=== PATIENT | female | born 1975 | race American Indian/Alaskan Native ===

== ENCOUNTER 2019-09-06 09:12 | Emergency (ER) | payer SELFPAY ==
[2019-09-06] MEDS ORDERED: SODIUM CHLORIDE 0.9% 1000 ML IV SOLN IV ONE (09:52)
--- NOTE | 2019-09-06 09:55 | Event Note ---
ED Screening Note Date of service: 09/06/19 Time: 09:50 ED Screening Note: 44 y/o female comes in for dizziness and blurred vision. This initial assessment/diagnostic orders/clinical plan/treatment(s) is/are subject to change based on patients health status, clinical progression and re-assessment by fellow clinical providers in the ED. Further treatment and workup at subsequent clinical providers discretion. Patient/guardian urged not to elope from the ED as their condition may be serious if not clinically assessed and managed. Initial orders include: ED sepsis protocol. Patient is tachy and has a fever.
[2019-09-06 10:29] LABS: Basophils # (Auto) 0.1 K/mm3 (0.0-0.1); Basophils % (Auto) 1.2 % (0.0-1.8); Eosinophils # (Auto) 0.1 K/mm3 (0.0-0.4); Eosinophils % (Auto) 1.7 % (0.0-4.3); Hematocrit 23.1 % (30.3-42.9); Hemoglobin 7.3 gm/dl (10.1-14.3); Lymphocytes # (Auto) 0.9 K/mm3 (1.2-5.4); Lymphocytes % (Auto) 21.3 % (13.4-35.0); Mean Corpuscular HGB Conc 32 % (30-34); Mean Corpuscular Volume 74 fl (79-97); Monocytes # (Auto) 0.4 K/mm3 (0.0-0.8); Monocytes % (Auto) 9.6 % (0.0-7.3); Red Blood Count 3.11 M/mm3 (3.65-5.03)
[2019-09-06 10:39] LABS: Platelet Count 145 K/mm3 (140-440); Red Cell Distribution Width 20.5 % (13.2-15.2)
[2019-09-06 10:44] LABS: Albumin 3.1 g/dL (3.9-5); Calcium 8.5 mg/dL (8.4-10.2)
[2019-09-06 10:53] LABS: Bacteria,Urine 2+ /HPF (Negative); Bilirubin,Urine NEG (Negative); Blood,Urine NEG (Negative); Color,Urine Yellow (Yellow); Mucus,Urine FEW /HPF; Urobilinogen,Urine < 2.0 mg/dL (<2.0)
[2019-09-06] MEDS ORDERED: SODIUM CHLORIDE 0.9% 250ML 250 ML ONE (11:03)
[2019-09-06] MEDS ORDERED: ACETAMINOPHEN 325 MG TAB PO ONE (11:37)
[2019-09-06] MEDS ORDERED: SODIUM CHLORIDE 0.9% 500 ML 500 ML IV ONE (11:37)
[2019-09-06] MEDS ORDERED: PANTOPRAZOLE 40 MG INJ IV ONE (11:37)
--- NOTE | 2019-09-06 11:38 | Emergency Department Report ---
ED General Adult HPI - General Chief complaint: Dizziness Stated complaint: blurry vision,dizzy Time Seen by Provider: 09/06/19 09:50 Source: patient, RN notes reviewed Mode of arrival: Ambulatory Limitations: No Limitations - History of Present Illness Initial comments: This is a 44-year-old female. The patient is not known to myself previously. 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 She started the pain medication that was prescribed for her, a few weeks ago, but she cannot recall the name of the pain medication. She has no physical pain at this time. She describes her dizziness as a sensation of lightheadedness and blurry vision. There is no complaint of headache, neck pain, chest pain, abdominal pain or shortness of breath. The patient also endorses that she has black stool occasionally, but that she takes iron tablets. She does not take any blood thinning medications. She is not able to describe exacerbating or relieving factors. She denies focal extremity weakness and or numbness. There is no neck pain or neck stiffness. -: Gradual, week(s) Consistency: other Improves with: other Worsens with: other Associated Symptoms: other - Related Data Allergies Allergy/AdvReac Type Severity Reaction Status Date / Time No Known Allergies Allergy Unverified 09/06/19 09:23 ED Review of Systems ROS: Stated complaint: blurry vision,dizzy Other details as noted in HPI Constitutional: see HPI Eyes: as per HPI ENT: as per HPI Respiratory: see HPI Cardiovascular: as per HPI Gastrointestinal: as per HPI Genitourinary: as per HPI Musculoskeletal: as per HPI Skin: as per HPI Neurological: as per HPI Psychiatric: as per HPI Hematological/Lymphatic: as per HPI ED Past Medical Hx - Past Medical History Previous Medical History?: No - Surgical History Past Surgical History?: No - Social History Smoking Status: Never Smoker ED Physical Exam - General Limitations: No Limitations General appearance: alert, in no apparent distress - Head Head exam: Present: atraumatic, normocephalic - Eye Eye exam: Present: normal appearance, PERRL, EOMI, other (Visual acuity is intact to finger counting and color perception at a close distance). Absent: nystagmus - ENT ENT exam: Present: normal exam, normal orophraynx, mucous membranes moist, normal external ear exam - Neck Neck exam: Present: normal inspection, full ROM. Absent: tenderness, meningismus - Respiratory Respiratory exam: Present: normal lung sounds bilaterally. Absent: respiratory distress - Cardiovascular Cardiovascular Exam: Present: normal rhythm, tachycardia, normal heart sounds. Absent: systolic murmur, diastolic murmur, rubs, gallop - GI/Abdominal GI/Abdominal exam: Present: soft, normal bowel sounds. Absent: distended, tenderness, guarding, rebound, rigid, pulsatile mass - Rectal Rectal exam: Present: normal inspection, normal rectal tone, heme (+) stool, other (Chaperoned by nurse Soni Alamo). Absent: black stool, bloody stool, fecal impaction, hemorrhoids - Extremities Exam Extremities exam: Present: normal inspection, full ROM, other (2+ pulses noted in the bilateral upper and lower extremities. There is no palpable cord. negative Homans sign. Muscular compartments are soft. The pelvis is stable.). Absent: pedal edema, calf tenderness - Back Exam Back exam: Present: normal inspection, full ROM. Absent: tenderness, CVA tenderness (R), CVA tenderness (L), paraspinal tenderness, vertebral tenderness - Neurological Exam Neurological exam: Present: alert, normal gait, other (There is no facial droop. The tongue is midline. Extraocular movements are intact bilaterally. There is 5 out of 5 strength in bilateral upper and lower extremities. Sensation is intact to light touch bilateral upper and lower extremities. There is no past- pointing. There is no pronator drift. There is normal [id number]. There is a normal gait.). Absent: motor sensory deficit - Psychiatric Psychiatric exam: Present: anxious - Skin Skin exam: Present: warm, dry, intact, normal color. Absent: rash ED Course Vital Signs 09/06/19 09/06/19 09/06/19 09:29 09:50 10:48 Temperature 100.4 F H 100.4 F H Pulse Rate 128 H 126 H 100 H Respiratory 18 18 21 Rate Blood Pressure 111/73 111/73 Blood Pressure 112/77 [Left] O2 Sat by Pulse 100 100 98 Oximetry 09/06/19 09/06/19 09/06/19 12:00 13:42 16:47 Temperature Pulse Rate 96 H 96 H 77 Respiratory 21 20 16 Rate Blood Pressure Blood Pressure 100/79 112/81 107/72 [Left] O2 Sat by Pulse 98 97 97 Oximetry 09/06/19 09/07/19 09/07/19 18:03 00:20 02:00 Temperature 98.4 F 98.2 F Pulse Rate 84 85 87 Respiratory 16 18 20 Rate Blood Pressure Blood Pressure 106/76 113/76 105/75 [Left] O2 Sat by Pulse 98 97 100 Oximetry 09/07/19 09/07/19 09/07/19 03:00 04:00 05:00 Temperature Pulse Rate 91 H 95 H 94 H Respiratory 18 23 20 Rate Blood Pressure Blood Pressure 106/74 113/81 116/80 [Left] O2 Sat by Pulse 99 100 100 Oximetry 09/07/19 09/07/19 09/07/19 06:30 06:45 07:00 Temperature Pulse Rate 114 H 107 H 111 H Respiratory 22 21 16 Rate Blood Pressure 127/89 127/89 125/87 Blood Pressure [Left] O2 Sat by Pulse 100 100 98 Oximetry 09/07/19 09/07/19 08:37 09:26 Temperature 100.4 F H Pulse Rate 110 H 109 H Respiratory 20 18 Rate Blood Pressure Blood Pressure 126/75 114/81 [Left] O2 Sat by Pulse 100 100 Oximetry - Reevaluation(s) Reevaluation #1: 09/06/19 14:08 Differential diagnosis, including but not limited to: Viral syndrome, influenza, pneumonia, urinary tract infection, symptomatic anemia, GERD, gastritis, upper GI bleed Assessment and plan: 44-year-old female with a nonfocal neurologic examination, alert and oriented, clinically sober, GCS of 15, with a primary complaint of weakness, dizziness, blurry vision, found to have a low-grade fever, tachycardia, microcytic anemia, leukopenia, with CT scan of the brain showing nonspecific vasogenic edema. This hospital does not have neurology critical care, or neurosurgery available for consultation. Reached out to [facility], and discussed the case with their neurology critical care physician, Dr. Burke Adkins, who advised that the patient does not meet criteria for ICU stay, and I agree with him. However, the patient does require further work-up and evaluation Reevaluation #2: 09/06/19 14:19 d/w Dr Avalos neurology physician at [facility], who accepts the patient to their service. This case was also discussed with her hospital physician, Dr. Susan Aaron, who also advised transfer and advised that he would not be able to admit the patient to the medical service secondary to lack of having neurology surgery, if the patient had an unexpected decompensation., ED Medical Decision Making - Lab Data Result diagrams: 09/06/19 10:06 09/06/19 10:06 Vital Signs 09/06/19 09/06/19 09:50 10:48 Temperature 100.4 F H Pulse Rate 126 H 100 H Respiratory 18 21 Rate Blood Pressure 111/73 Blood Pressure 112/77 [Left] O2 Sat by Pulse 100 98 Oximetry Lab Results 09/06/19 09/06/19 09/06/19 Range/Units 10:06 10:06 10:06 WBC 4.3 L (4.5-11.0) K/mm3 RBC 3.11 L (3.65-5.03) M/mm3 Hgb 7.3 L (10.1-14.3) gm/dl Hct 23.1 L (30.3-42.9) % MCV 74 L (79-97) fl MCH 23 L (28-32) pg MCHC 32 (30-34) % RDW 20.5 H (13.2-15.2) % Plt Count 145 (140-440) K/mm3 Lymph % (Auto) 21.3 (13.4-35.0) % [place] % (Auto) 9.6 H (0.0-7.3) % Eos % (Auto) 1.7 (0.0-4.3) % Baso % (Auto) 1.2 (0.0-1.8) % Lymph # 0.9 L (1.2-5.4) K/mm3 [place] # 0.4 (0.0-0.8) K/mm3 Eos # 0.1 (0.0-0.4) K/mm3 Baso # 0.1 (0.0-0.1) K/mm3 Seg Neutrophils % 66.2 (40.0-70.0) % Seg Neutrophils # 2.8 (1.8-7.7) K/mm3 Sodium 131 L (137-145) mmol/L Potassium 4.2 (3.6-5.0) mmol/L Chloride 99.4 (98-107) mmol/L Carbon Dioxide 20 L (22-30) mmol/L Anion Gap 16 mmol/L BUN 14 (7-17) mg/dL Creatinine 1.5 H (0.7-1.2) mg/dL Estimated GFR 38 ml/min BUN/Creatinine Ratio 9 % Glucose 109 H (65-100) mg/dL Lactic Acid 0.70 (0.7-2.0) mmol/L Calcium 8.5 (8.4-10.2) mg/dL Magnesium (1.7-2.3) mg/dL Total Bilirubin 0.20 (0.1-1.2) mg/dL AST 107 H (5-40) units/L ALT 47 (7-56) units/L Alkaline Phosphatase 47 (35-129) units/L Total Creatine Kinase (30-135) units/L Total Protein 8.8 H (6.3-8.2) g/dL Albumin 3.1 L (3.9-5) g/dL Albumin/Globulin Ratio 0.5 % Urine Color (Yellow) Urine Turbidity (Clear) Urine pH (5.0-7.0) Ur Specific [place] (1.003-1.030) Urine Protein (Negative) mg/dL Urine Glucose (UA) (Negative) mg/dL Urine Ketones (Negative) mg/dL Urine Blood (Negative) Urine Nitrite (Negative) Urine Bilirubin (Negative) Urine Urobilinogen (<2.0) mg/dL Ur Leukocyte Esterase (Negative) Urine WBC (Auto) (0.0-6.0) /HPF Urine RBC (Auto) (0.0-6.0) /HPF U Epithel Cells (Auto) (0-13.0) /HPF Urine Bacteria (Auto) (Negative) /HPF Urine Mucus /HPF Influenza A (Rapid) (Negative) Influenza B (Rapid) (Negative) 09/06/19 09/06/19 09/06/19 Range/Units 10:06 10:17 11:35 WBC (4.5-11.0) K/mm3 RBC (3.65-5.03) M/mm3 Hgb (10.1-14.3) gm/dl Hct (30.3-42.9) % MCV (79-97) fl MCH (28-32) pg MCHC (30-34) % RDW (13.2-15.2) % Plt Count (140-440) K/mm3 Lymph % (Auto) (13.4-35.0) % [place] % (Auto) (0.0-7.3) % Eos % (Auto) (0.0-4.3) % Baso % (Auto) (0.0-1.8) % Lymph # (1.2-5.4) K/mm3 [place] # (0.0-0.8) K/mm3 Eos # (0.0-0.4) K/mm3 Baso # (0.0-0.1) K/mm3 Seg Neutrophils % (40.0-70.0) % Seg Neutrophils # (1.8-7.7) K/mm3 Sodium (137-145) mmol/L Potassium (3.6-5.0) mmol/L Chloride (98-107) mmol/L Carbon Dioxide (22-30) mmol/L Anion Gap mmol/L BUN (7-17) mg/dL Creatinine (0.7-1.2) mg/dL Estimated GFR ml/min BUN/Creatinine Ratio % Glucose (65-100) mg/dL Lactic Acid (0.7-2.0) mmol/L Calcium (8.4-10.2) mg/dL Magnesium 2.50 H (1.7-2.3) mg/dL Total Bilirubin (0.1-1.2) mg/dL AST (5-40) units/L ALT (7-56) units/L Alkaline Phosphatase (35-129) units/L Total Creatine Kinase 235 H (30-135) units/L Total Protein (6.3-8.2) g/dL Albumin (3.9-5) g/dL Albumin/Globulin Ratio % Urine Color Yellow (Yellow) Urine Turbidity Slightly-cloudy (Clear) Urine pH 5.0 (5.0-7.0) Ur Specific [place] 1.013 (1.003-1.030) Urine Protein 100 mg/dl (Negative) mg/dL Urine Glucose (UA) Neg (Negative) mg/dL Urine Ketones Neg (Negative) mg/dL Urine Blood Neg (Negative) Urine Nitrite Neg (Negative) Urine Bilirubin Neg (Negative) Urine Urobilinogen < 2.0 (<2.0) mg/dL Ur Leukocyte Esterase Mod (Negative) Urine WBC (Auto) 6.0 (0.0-6.0) /HPF Urine RBC (Auto) 6.0 (0.0-6.0) /HPF U Epithel Cells (Auto) 6.0 (0-13.0) /HPF Urine Bacteria (Auto) 2+ (Negative) /HPF Urine Mucus Few /HPF Influenza A (Rapid) Negative (Negative) Influenza B (Rapid) Negative (Negative) - EKG Data -: EKG Interpreted by Hi EKG shows normal: sinus rhythm Rate: normal - EKG Data 09/06/19 14:07 Sinus rhythm, 98 bpm, normal axis, QTC 491 ms, poor R wave progression, T wave inversion in the lateral leads, the EKG is abnormal, there is no prior for comparison, it is not a STEMI - Radiology Data Radiology results: report reviewed, image reviewed Print Report Referring Physician: TYREE STORM Patient Name: ALEXANDER SEQUEIRA Date of : 1975 Sex: Female Report Date: 2019-09-06 Report Status: [place] [address] Cat Scan Report Signed Patient: ALEXANDER TRUJILLO MR#: [id number] : Acct:[id number] Age/Sex: 44 / F ADM Date: 09/06/19 Loc: ED Attending Dr: Ordering Physician: TYREE STORM MD Date of Service: 09/06/19 Procedure(s): CT head/brain wo con Accession Number(s): [id number] cc: TYREE STORM MD CT head/brain wo con INDICATION: Weakness, dizziness, fever. TECHNIQUE: Routine CT head without contrast. All CT scans at this location are performed using CT dose reduction for ALARA by means of automated exposure control. COMPARISON: None. FINDINGS: BRAIN / INTRACRANIAL CONTENTS: There are multiple areas of white matter edema in both cerebral hemispheres, involving the anterior medial left frontal lobe, left parietal low convexity, and right posterior temporal lobe/right periventricular white matter. There is no associated hemorrhage or adverse mass effect. There is no hydrocephalus. ORBITS: No significant abnormality of visualized orbits. SINUSES / MASTOIDS: No significant abnormality of visualized sinuses and mastoid air cells. ADDITIONAL FINDINGS: None. IMPRESSION: 1. Multiple areas of vasogenic edema in the cerebral white matter. Differential considerations would include edema secondary to metastatic lesions as well as multifocal encephalitis/cerebritis (especially given history of fever). Further characterization with MRI of the brain without and with IV contrast is recommended. Signer Name: Michael Weinstein MD Signed: 09/06/2019 12:51 PM Workstation Name: [id number] Transcribed By: YOGI Dictated By: Michael Weinstein MD Electronically Authenticated By: Michael Weinstein MD Signed Date/Time: 09/06/19 1251 DD/ 1249 Print Report Referring Physician: TYREE STORM Patient Name: ALEXANDER SEQUEIRA Date of : 1975 Sex: Female Report Date: 2019-09-06 Report Status: Finalized Findings [address] [address] XRay Report Signed Patient: ALEXANDER TRUJILLO MR#: [id number] : 1975 Acct:[id number] Age/Sex: 44 / F ADM Date: 09/06/19 Loc: ED Attending Dr: Ordering Physician: TYREE STORM MD Date of Service: 09/06/19 Procedure(s): XR chest 1V ap Accession Number(s): [id number] cc: TYREE STORM MD Fluoro Time In Minutes: CHEST 1 VIEW 09/06/2019 11:17 AM INDICATION / CLINICAL INFORMATION: Weakness, dizziness, fever. COMPARISON: None available. FINDINGS: SUPPORT DEVICES: None. HEART / MEDIASTINUM: No significant abnormality. LUNGS / PLEURA: No significant pulmonary or pleural abnormality. No pneumothorax. ADDITIONAL FINDINGS: No significant additional findings. IMPRESSION: 1. No acute abnormality of the chest. Signer Name: Blaise Crockett MD Signed: 09/06/2019 12:20 PM Workstation Name: [id number] Transcribed By: RAMON Dictated By: Blaise Crockett MD Electronically Authenticated By: Blaise Crockett MD Signed Date/Time: 09/06/19 1220 DD/ 1220 Critical Care Time: Yes Critical care time in (mins) excluding proc time.: 60 Critical care attestation.: If time is entered above; I have spent that time in minutes in the direct care of this critically ill patient, excluding procedure time. ED Disposition Clinical Impression: Microcytic anemia, MAEVE (acute kidney injury), Acute febrile illness, Vasogenic brain edema Disposition: DC/TX- [facility] IP Is pt being admited?: No Does the pt Need Aspirin: No Condition: Serious Referrals: PRIMARY CARE, [Primary Care Provider] - 3-5 Days
--- NOTE | 2019-09-06 12:24 | XRay Report ---
CHEST 1 VIEW 09/06/2019 11:17 AM INDICATION / CLINICAL INFORMATION: Weakness, dizziness, fever. COMPARISON: None available. FINDINGS: SUPPORT DEVICES: None. HEART / MEDIASTINUM: No significant abnormality. LUNGS / PLEURA: No significant pulmonary or pleural abnormality. No pneumothorax. ADDITIONAL FINDINGS: No significant additional findings. IMPRESSION: 1. No acute abnormality of the chest. Signer Name: Blaise Crockett MD Signed: 09/06/2019 12:20 PM Workstation Name: [id number]
--- NOTE | 2019-09-06 12:56 | Cat Scan Report ---
CT head/brain wo con INDICATION: Weakness, dizziness, fever. TECHNIQUE: Routine CT head without contrast. All CT scans at this location are performed using CT dos e reduction for ALARA by means of automated exposure control. COMPARISON: None. FINDINGS: BRAIN / INTRACRANIAL CONTENTS: There are multiple areas of white matter edema in both cerebral hemisp heres, involving the anterior medial left frontal lobe, left parietal low convexity, and right occupational therapist per diem ior temporal lobe/right periventricular white matter. There is no associated hemorrhage or adverse ma ss effect. There is no hydrocephalus. ORBITS: No significant abnormality of visualized orbits. SINUSES / MASTOIDS: No significant abnormality of visualized sinuses and mastoid air cells. ADDITIONAL FINDINGS: None. IMPRESSION: 1. Multiple areas of vasogenic edema in the cerebral white matter. Differential considerations would include edema secondary to metastatic lesions as well as multifocal encephalitis/cerebritis (especial ly given history of fever). Further characterization with MRI of the brain without and with IV contra st is recommended. Signer Name: Michael Weinstein MD Signed: 09/06/2019 12:51 PM Workstation Name: [id number]
[2019-09-06 14:20] LABS: INR 1.11 (0.87-1.13); Partial Thromboplastin Time 32.6 Sec. (24.2-36.6)
[2019-09-06] MEDS: cefTRIAXone/NS 2 GM/100 ML 2 GM/100 ML BAG IV SCH (14:40)
[2019-09-06 14:58] LABS: Chol/HDL Ratio 6.13 %
[2019-09-07] MEDS ORDERED: METOCLOPRAMIDE 10 MG/2 ML INJ IV PRN (07:16)
[2019-09-07] MEDS ORDERED: ACETAMINOPHEN 325 MG TAB PO PRN (07:19)
[2019-09-07] MEDS ORDERED: D5W/0.45% NACL/KCL 20 MEQ 20 MEQ/1,000 ML BAG IV SCH (08:00)
[2019-09-07 09:27] VITALS: BP 114/81
[2019-09-07] MEDS: cefTRIAXone/NS 2 GM/100 ML 2 GM/100 ML BAG IV SCH (10:09)
== END 2019-09-07 10:11 | disposition short-term general hospital (02) ==
LOC: ED 09:12
DX: D50.9 Iron deficiency anemia, unspecified (principal); N17.9 Acute kidney failure, unspecified; G93.89 Other specified disorders of brain
CPT/HCPCS: 36415; 70450; 71045; 80053; 80061; 81001; 82140; 82271; 82550; 83735; 84443; 84484; 85025; 85610; 85730; 86850; 86900; 86901; 87040; 87400; 93005; 93010; 96361; 96374; 99285; C9113; J0696; J7030; J7040; J7050